=== PATIENT | female | born 1945 | race Two or more races ===

== ENCOUNTER 2018-06-19 03:43 | Inpatient (IN) | payer MEDICARE, MEDICAID ==
[~2018-06-19] VITALS: Ht 162.6 cm; Wt 81.1 kg
[~2018-06-19 03:43] MED LIST: ACET650T79 PO; ASPI81CH43 NG; ATEN-60 PO; BUDE160A3 INH; FOLI1TAB6 PO; Furosemide PO; HYDR-4296 PO; LEVO150T68 PO; METH2.5T3 PO; POTA10SO11 PO
[2018-06-19] MEDS ORDERED: MORPHINE SULFATE 4 MG/ML SYR/VIAL IV ONE (04:15)
[2018-06-19] MEDS ORDERED: SODIUM CHLORIDE 0.9% 1,000 ML IV ONE (04:15)
[2018-06-19] MEDS ORDERED: ONDANSETRON HCL 4 MG/2 ML VIAL IV ONE (04:15)
[2018-06-19 04:40] LABS: Basophils # (auto) 0 uL; Basophils % (auto) 0.4 % (0.0-2.0); Eosinophils # (auto) 0.1 uL; Eosinophils % (auto) 0.7 % (0.0-7.0); Hemoglobin 14.2 g/dL (12.2-16.2); Lymphocytes # (auto) 1.2 uL; Lymphocytes % (auto) 11.4 % (10.0-50.0); Mean Corpuscular Hemoglobin 30.4 pg (28.0-32.0); Mean Corpuscular Hgb Conc. 33.7 g/dL (32.0-36.0); Mean Corpuscular Volume 90.1 fL (80.0-100.0); Monocytes # (auto) 0.4 uL; Monocytes % (auto) 4.2 % (0.0-12.0); Neutrophils # (auto) 8.6 uL; Neutrophils % (auto) 83.3 % (37.0-80.0); Nucleated Red Blood Cells % 0.1 %; Platelet Count (auto) 211 10^3/uL (140-450); Red Blood Cells 4.66 10^6/uL (4.0-5.20); Red Cell Distribution Width 13.3 % (11.8-14.3); White Blood Cell 10.3 10^3/uL (4.4-10.8)
[2018-06-19 04:56] LABS: Alanine Aminotransferase 18 U/L (13-56); Albumin 3.9 g/dL (3.4-5.0); Amylase 35 U/L (25-115); Anion Gap 7 (5-15); Blood Urea Nitrogen 31 mg/dL (7-18); Calcium 9.1 mg/dL (8.5-10.1); Carbon Dioxide 27 mmol/L (21-32); Chloride 99 mmol/L (98-107); Glucose 145 mg/dL (74-106); Lipase 79 U/L (73-393); Potassium 3.5 mmol/L (3.5-5.1); Sodium 133 mmol/L (136-145)
[2018-06-19 05:01] LABS: Alkaline Phosphatase 128 U/L (45-117); Aspartate Aminotransferase 14 U/L (15-37); BUN/Creatinine Ratio 39.7; Bilirubin, Total 0.5 mg/dL (0.2-1.0); GFR African American 93 mL/min; GFR Non-African American 77 mL/min; Total Protein 8.5 g/dL (6.4-8.2)
[2018-06-19] MEDS ORDERED: HYDROcodone-ACET 5/325MG TAB PO PRN (06:15)
[2018-06-19] MEDS ORDERED: ACETAMINOPHEN 325 MG TAB PO PRN (06:15)
[2018-06-19] MEDS: SODIUM CHLORIDE 0.9% 1,000 ML IV SCH ×2 (06:15→19:35)
[2018-06-19] MEDS ORDERED: ONDANSETRON HCL 4 MG/2 ML VIAL IV PRN (06:15)
[2018-06-19] MEDS ORDERED: MORPHINE SULFATE 4 MG/ML SYR/VIAL IV PRN (06:15)
[2018-06-19] MEDS ORDERED: hydrALAZINE HCL 20 MG/ML VL IV PRN (06:15)
[2018-06-19] MEDS ORDERED: GASTROGRAFIN 120 ML SOL ONE (07:21)
[2018-06-19 09:45] VITALS: BP_SYST 121; BP_DIAS 61; BP_DIAS 67
[2018-06-19] MEDS: PANTOPRAZOLE 40 MG/10 ML VIAL IV SCH (11:17)
[2018-06-19 13:00] VITALS: BP 128/100
[2018-06-19] MEDS: ENOXAPARIN SOD 40 MG/0.4 ML SYRINGE SC SCH (14:08)
[2018-06-19 17:55] VITALS: BP 145/52
[2018-06-19 21:47] VITALS: BP 125/60
[2018-06-19] MEDS ORDERED: ALBUTEROL SULF 2.5 MG/0.5ML(0.5%) NEB SOLN NEB PRN (22:15)
[2018-06-20 04:10] VITALS: BP 125/60
[2018-06-20 05:00] VITALS: BP 134/53
[2018-06-20 05:46] LABS: Basophils # (auto) 0 uL; Basophils % (auto) 0.7 % (0.0-2.0); Eosinophils # (auto) 0.1 uL; Hematocrit 37.5 % (36.0-46.0); Hemoglobin 12.7 g/dL (12.2-16.2); Lymphocytes # (auto) 1.3 uL; Lymphocytes % (auto) 26.2 % (10.0-50.0); Mean Corpuscular Hgb Conc. 33.8 g/dL (32.0-36.0); Mean Corpuscular Volume 91.7 fL (80.0-100.0); Monocytes # (auto) 0.4 uL; Monocytes % (auto) 8.1 % (0.0-12.0); Neutrophils # (auto) 3.1 uL; Nucleated Red Blood Cells % 0.1 %; Platelet Count (auto) 164 10^3/uL (140-450); Red Blood Cells 4.09 10^6/uL (4.0-5.20); Red Cell Distribution Width 13.6 % (11.8-14.3); White Blood Cell 4.9 10^3/uL (4.4-10.8)
[2018-06-20 06:05] LABS: Albumin 3.2 g/dL (3.4-5.0); BUN/Creatinine Ratio 47.9; Calcium 8.2 mg/dL (8.5-10.1); Potassium 3.7 mmol/L (3.5-5.1)
[2018-06-20 06:07] LABS: Bilirubin, Total 0.6 mg/dL (0.2-1.0); Total Protein 6.9 g/dL (6.4-8.2)
[2018-06-20] MEDS: SODIUM CHLORIDE 0.9% 1,000 ML IV SCH (07:03)
[2018-06-20 07:45] VITALS: BP 157/79
[2018-06-20 08:51] VITALS: BP 157/79
[2018-06-20] MEDS: PANTOPRAZOLE 40 MG/10 ML VIAL IV SCH (10:12)
[2018-06-20] MEDS: ENOXAPARIN SOD 40 MG/0.4 ML SYRINGE SC SCH (10:13)
[2018-06-20] MEDS ORDERED: ATENOLOL 50 MG TAB PO ONE (12:45)
[2018-06-20 13:00] VITALS: BP 152/63
[2018-06-20 14:00] VITALS: BP 138/74
[2018-06-20] MEDS ORDERED: hydrALAZINE HCL 25 MG TAB PO SCH (22:00)
[2018-06-20] MEDS ORDERED: SYMBICORT PO SCH (22:00)
[2018-06-21] MEDS ORDERED: ATENOLOL 50 MG TAB PO SCH (10:00)
== END 2018-06-20 15:00 | disposition home or self-care (01) | DRG 390 ==
LOC: ER 03:46 → OVERFLOW 06:34 → EAST 09:47
PROVIDERS: ADMIT Nurse Practitioner; ATTEND Internal Medicine Pulmonary Disease
PROC: 0D9670Z Drainage of Stomach with Drainage Device, Via Natural or Artificial Opening (ICD-10-PCS; principal; 2018-06-19)
DX: K56.600 Partial intestinal obstruction, unspecified as to cause (principal); E89.0 Postprocedural hypothyroidism; I11.0 Hypertensive heart disease with heart failure; I50.9 Heart failure, unspecified; M06.9 Rheumatoid arthritis, unspecified; K80.20 Calculus of gallbladder without cholecystitis without obstruction; Z93.3 Colostomy status; Z82.61 Family history of arthritis; Z82.3 Family history of stroke; Z84.89 Family history of other specified conditions; Z88.8 Allergy status to other drugs, medicaments and biological substances; Z79.899 Other long term (current) drug therapy; Z79.82 Long term (current) use of aspirin
CPT/HCPCS: 36415; 71045; 74176; 74250; 80053; 82150; 83690; 83880; 84443; 84484; 85025; 93005; 94761; 96361; 96374; 96375; C9113; G0378; J2405

== ENCOUNTER → 2018-09-10 | Outpatient (CLI) | payer MEDICARE, MEDICAID | END | disposition home or self-care (01) | LOC: XYW 10:40 | PROVIDERS: ATTEND Internal Medicine | DX: I08.3 Combined rheumatic disorders of mitral, aortic and tricuspid valves (principal); I70.0 Atherosclerosis of aorta; I50.9 Heart failure, unspecified; J44.9 Chronic obstructive pulmonary disease, unspecified | CPT/HCPCS: 93306 ==

== ENCOUNTER → 2018-09-16 | Outpatient (CLI) | payer MEDICARE, MEDICAID ==
[2018-09-16 12:56] LABS: Basophils # (auto) 0 uL; Basophils % (auto) 0.4 % (0.0-2.0); Eosinophils # (auto) 0.1 uL; Hematocrit 38.2 % (36.0-46.0); Hemoglobin 12.8 g/dL (12.2-16.2); Lymphocytes # (auto) 1.4 uL; Mean Corpuscular Hemoglobin 29.2 pg (28.0-32.0); Mean Corpuscular Hgb Conc. 33.4 g/dL (32.0-36.0); Mean Corpuscular Volume 87.2 fL (80.0-100.0); Monocytes # (auto) 0.4 uL; Monocytes % (auto) 6.1 % (0.0-12.0); Neutrophils # (auto) 4.5 uL; Neutrophils % (auto) 70.5 % (37.0-80.0); Platelet Count (auto) 209 10^3/uL (140-450); Red Blood Cells 4.38 10^6/uL (4.0-5.20); Red Cell Distribution Width 13.6 % (11.8-14.3); White Blood Cell 6.4 10^3/uL (4.4-10.8)
[2018-09-16 13:14] LABS: Urine Amorphous Crystal FEW /hpf (None Seen); Urine Bacteria NONE SEEN /hpf (None Seen); Urine Blood Negative /uL (Negative); Urine Mucus FEW (None Seen); Urine Specific Gravity 1.016 (1.001-1.035); Urine WBC 5 /hpf (0 - 5)
[2018-09-16 13:33] LABS: Albumin 3.4 g/dL (3.4-5.0); Calcium 8.9 mg/dL (8.5-10.1); Potassium 3.8 mmol/L (3.5-5.1)
[2018-09-16 13:41] LABS: BUN/Creatinine Ratio 33.3; Bilirubin, Total 0.5 mg/dL (0.2-1.0); CRP High Sensitivity 1.4 mg/dL (< 0.3); Total Protein 8.1 g/dL (6.4-8.2)
[2018-09-16 20:14] LABS: Free T4 (Free Thyroxine) 1.99 ng/dL (0.89-1.76); T3 Total 0.97 ng/mL (0.60-1.81)
[2018-09-16 20:15] LABS: Free T3 2.99 pg/mL (2.3-4.2)
== END | disposition home or self-care (01) ==
LOC: LAB 12:09
PROVIDERS: ATTEND Internal Medicine
DX: Z01.818 Encounter for other preprocedural examination (principal); E03.9 Hypothyroidism, unspecified; I11.0 Hypertensive heart disease with heart failure; I50.9 Heart failure, unspecified
CPT/HCPCS: 36415; 80053; 80061; 81001; 82306; 82607; 83036; 84439; 84443; 84480; 84481; 85025; 86141

== ENCOUNTER → 2018-09-16 | Outpatient (CLI) | payer MEDICARE, MEDICAID ==
[~2018-09-16] VITALS: Ht 160 cm; Wt 79.4 kg
[~2018-09-16] MED LIST changes: +ADENOSINE 67 MG in GIVE UN-DILUTED 0 ML IV STA; +ALBUTEROL SULF 2.5 MG/0.5ML(0.5%) NEB SOLN ONE; +IPRATROPIUM BROM 0.5 MG/2.5ML INH SOL ONE
[2018-09-16 11:09] VITALS: BP 164/56
== END | disposition home or self-care (01) ==
LOC: XYW 09:53
PROVIDERS: ATTEND Internal Medicine
DX: Z01.818 Encounter for other preprocedural examination (principal); E03.9 Hypothyroidism, unspecified; I11.0 Hypertensive heart disease with heart failure; I50.9 Heart failure, unspecified; J44.9 Chronic obstructive pulmonary disease, unspecified
CPT/HCPCS: 36415; 78452; 80053; 80061; 81001; 82306; 82607; 83036; 84439; 84443; 84480; 84481; 85025; 86141; 93017; A9500; J0153

== ENCOUNTER 2022-05-10 11:28 | Inpatient (IN) | payer OTHER, MEDICAID ==
[~2022-05-10] VITALS: Ht 165.1 cm; Wt 68.2 kg
[~2022-05-10 11:28] MED LIST changes: -ADENOSINE 67 MG in GIVE UN-DILUTED 0 ML IV STA; -ALBUTEROL SULF 2.5 MG/0.5ML(0.5%) NEB SOLN ONE; -IPRATROPIUM BROM 0.5 MG/2.5ML INH SOL ONE; +LEV150T PO; -LEVO150T68 PO; +METH2.5T PO; -METH2.5T3 PO
[2022-05-10 12:47] LABS: Basophils # (auto) 0 10 ^3/uL (0-0.2); Basophils % (auto) 0.1 % (0.0-2.0); Eosinophils # (auto) 0 10 ^3/uL (0-0.8); Eosinophils % (auto) 0.1 % (0.0-7.0); Hematocrit 42.8 % (36.0-46.0); Hemoglobin 14.3 g/dL (12.2-16.2); Lymphocytes # (auto) 0.4 10 ^3/uL (0.4-5.4); Lymphocytes % (auto) 2.3 % (10.0-50.0); Mean Corpuscular Hgb Conc. 33.5 g/dL (32.0-36.0); Mean Corpuscular Volume 89.7 fL (80.0-100.0); Monocytes # (auto) 0.7 10 ^3/uL (0-1.3); Monocytes % (auto) 4.1 % (0.0-12.0); Neutrophils # (auto) 16.3 10 ^3/uL (1.6-8.6); Neutrophils % (auto) 93.4 % (37.0-80.0); Nucleated Red Blood Cells % 0.1 %; Red Blood Cells 4.77 10^6/uL (4.0-5.20); Red Cell Distribution Width 14.2 % (11.8-14.3); White Blood Cell 17.5 10^3/uL (4.4-10.8)
[2022-05-10 12:58] LABS: Albumin 2.9 g/dL (3.4-5.0); Calcium 8.4 mg/dL (8.5-10.1)
[2022-05-10 12:59] LABS: BUN/Creatinine Ratio 50.7
[2022-05-10 13:02] LABS: Bilirubin, Total 1.5 mg/dL (0.2-1.0); Total Protein 6.8 g/dL (6.4-8.2)
[2022-05-10] MEDS ORDERED: AZITHROMYCIN 500MG/ 250ML 250 ML IV ONE (17:00)
[2022-05-10] MEDS ORDERED: cefTRIAXone 1GM/50ML D5W 50 ML IV ONE (17:00)
[2022-05-10] MEDS ORDERED: FUROSEMIDE 20 MG/2 ML VIAL IV ONE (17:00)
[2022-05-10] MEDS ORDERED: DOCUSATE SOD 100 MG CAP PO PRN (17:15)
[2022-05-10] MEDS ORDERED: SODIUM CHLORIDE 0.9% 1,000 ML IV SCH (17:15)
[2022-05-10] MEDS ORDERED: ACETAMINOPHEN 325 MG TAB PO PRN (17:15)
[2022-05-10] MEDS ORDERED: ONDANSETRON HCL 4 MG/2 ML VIAL IV PRN (17:15)
[2022-05-10] MEDS ORDERED: PANTOPRAZOLE 40 MG/10 ML VIAL INJ IV ONE (17:15)
[2022-05-10] MEDS ORDERED: HYDROcodone-ACET 5/325MG TAB PO PRN (17:15)
[2022-05-10] MEDS ORDERED: LEVO-140 PO (18:32)
[2022-05-10] MEDS ORDERED: BUDE1AER5 IN (18:32)
[2022-05-10] MEDS ORDERED: ALBUAER3 IN (18:32)
[2022-05-10] MEDS ORDERED: GABA300C10 PO (18:32)
[2022-05-10] MEDS ORDERED: ATOR20TA50 PO (18:32)
[2022-05-10 18:53] LABS: Cholesterol 168 mg/dL (< 200); HDL Cholesterol 60 mg/dL (40-59); LDL Cholesterol 99 mg/dL (< 100); Triglycerides 76 mg/dL (< 150)
[2022-05-10] MEDS ORDERED: DexAMETHasone INJECTION 10 MG in D5W 5% 50 ML IV ONE ×2 (19:30→21:30)
[2022-05-10] MEDS ORDERED: fentaNYL CITRATE 100 MCG/2 ML VL IV ONE (21:30)
[2022-05-10 22:51] LABS: Urine Bacteria MANY /hpf (None Seen); Urine Blood 2+ /uL (Negative); Urine Specific Gravity 1.016 (1.001-1.035); Urine WBC 2368 /hpf (0 - 5); Urine WBC Clumps PRESENT /hpf (None Seen)
[2022-05-10 23:09] LABS: Amphetamine Screen, Urine NEGATIVE (NEGATIVE); Barbiturate Scree,Urine NEGATIVE (NEGATIVE); Benzodiazephine Screen, Urine NEGATIVE (NEGATIVE); Cannabinoid Screen, Urine NEGATIVE (NEGATIVE); Cocaine Screen, Urine NEGATIVE (NEGATIVE); Opiate Scree,Urine NEGATIVE (NEGATIVE); Phencyclidine Screen, Urine NEGATIVE (NEGATIVE)
[2022-05-11 00:18] VITALS: BP 155/62
[2022-05-11 00:55] LABS: Urine Bacteria MOD /hpf (None Seen); Urine Blood 2+ /uL (Negative); Urine Mucus FEW (None Seen); Urine Specific Gravity 1.016 (1.001-1.035); Urine WBC 3637 /hpf (0 - 5); Urine WBC Clumps PRESENT /hpf (None Seen)
[2022-05-11] MEDS ORDERED: cefTRIAXone 1GM/50ML D5W 50 ML IV SCH (09:00)
[2022-05-11] MEDS ORDERED: AZITHROMYCIN 500MG/ 250ML 250 ML IV SCH (10:00)
[2022-05-11] MEDS ORDERED: PANTOPRAZOLE 40 MG/10 ML VIAL INJ IV SCH (10:00)
[2022-05-11] MEDS ORDERED: ENOXAPARIN SOD 40 MG/0.4 ML SYRINGE SC SCH (10:00)
== END 2022-05-11 00:17 | disposition short-term general hospital (02) | DRG 291 ==
LOC: ER 11:28 → OVERFLOW 17:06
PROVIDERS: ADMIT Nurse Practitioner Family; ATTEND Student in an Organized Health Care Education/Training Program
DX: I11.0 Hypertensive heart disease with heart failure (principal); I50.31 Acute diastolic (congestive) heart failure; J18.9 Pneumonia, unspecified organism; E44.0 Moderate protein-calorie malnutrition; E78.5 Hyperlipidemia, unspecified; E89.0 Postprocedural hypothyroidism; M06.9 Rheumatoid arthritis, unspecified; M19.90 Unspecified osteoarthritis, unspecified site; D72.829 Elevated white blood cell count, unspecified; Z88.8 Allergy status to other drugs, medicaments and biological substances; Z68.25 Body mass index [BMI] 25.0-25.9, adult
CPT/HCPCS: 36415; 51702; 70450; 71250; 72125; 72131; 72192; 80053; 80061; 80307; 81001; 83605; 83880; 84443; 84484; 85025; 87040; 93886; 96365; 96375; C9113; G0378; J0696; J1100; J7060